=== PATIENT | male | born 1930 | race Two or more races ===

== ENCOUNTER → 2017-03-11 | Outpatient (CLI) | payer MEDICARE ==
[~2017-03-11] MED LIST: ASP81 PO; ATOR10TA24 PO; ATOR20TA22 PO; CLO75 PO; CLOP75TA43 PO; DOCU-416 PO; FERR-41 PO; GAB300 PO; HYDR-385 PO; LEVO50TA86 PO; LIS10 PO; LISI-357 PO; LOR5/325 PO; METO-259 PO; NIT4 SL; NITR-105 PO; NITR0.4T3 SL; OMEP40CA45 PO; OXYC-865 PO; PAN20 PO; PANT40TA65 PO; RANI15SY19 PO; RANI75TA5 PO; SIMV-44 PO; SIMV-54 PO; SUCR1TAB51 PO; SUCR1TAB85 PO; TAMS0.4C70 PO; TERA5CAP57 PO; TOBROD OP; [UNRECOGNIZED DRUG - CODE] PO; prostate med
[2017-03-11 10:03] LABS: INR 3.41
== END ==
LOC: LAB 09:27
PROVIDERS: ATTEND Registered Nurse
DX: Z51.81 Encounter for therapeutic drug level monitoring (principal); Z79.01 Long term (current) use of anticoagulants; I48.0 Paroxysmal atrial fibrillation
CPT/HCPCS: 36415; 85610

== ENCOUNTER 2017-05-03 20:13 | Inpatient (IN) | payer MEDICARE ==
[2017-05-03] MEDS ORDERED: WARF-1 PO (20:29)
--- NOTE | 2017-05-03 20:30 | ER Report ---
History and Physical Time Seen By MD: 20:29 Hx. of Stated Complaint: pt reports shortness of breath past few weeks, heartburn earlier today, fatigue HPI/ROS 87-year-old male with past history significant for coronary artery disease, atrial fibrillation on chronic warfarin therapy presents with approximately one- week history of worsening dyspnea on exertion. Has had some intermittent chest discomfort that he attributes to heartburn but not is certainly associated with his exertional dyspnea. Patient notes that he can normally walk about 30 feet or so without any problems but today he can't even make it to the bathroom without feeling like he has to sit down and rest. He denies any fevers, chills, nausea, vomiting, sore throat, congestion, cough, abdominal pain, increased thirst, urinary frequency, urinary burning, diarrhea or constipation. Patient has noted no dark or bloody stools and denies any blood in his urine. Denies any rashes. Has noticed increased bruising in association with this warfarin use. Is also has had a pulsatile headache with some right-sided neck and jaw pain on and off its been there for some time. No occipital headache and jaw pain at this time. Review of systems per history of present illness otherwise negative Remainder of the 14 system rev: Yes Allergies: Coded Allergies: No Known Drug Allergies (Verified , 10/06/15) Home Meds Reported Medications Warfarin Sodium (WARFARIN SODIUM) 5 Mg Tablet, 5 MG PO QDAY, TAB 05/03/17 Sucralfate (CARAFATE) 1 Gm/10 Ml Oral.susp, 1 GM PO QID 05/03/17 Levothyroxine Sodium (LEVOTHYROXINE SODIUM) 75 Mcg Tablet, 88 MCG PO QDAY, TAB 05/03/17 Ferrous Sulfate (FERROUS SULFATE) 324 Mg Tablet.dr, 324 MG PO QDAY 05/03/17 Carvedilol (CARVEDILOL) 3.125 Mg Tab, 3.125 MG PO BID, TAB 05/03/17 Ranitidine Hcl 15 Mg/Ml Syr (RANITIDINE HCL 15 MG/ML SYR) 15 Mg/1 Ml Syrup, 150 MG PO BID 05/14/14 Tamsulosin Hcl (TAMSULOSIN HCL) 0.4 Mg Cap.er.24h, 0.4 MG PO QDAY 09/08/12 Clopidogrel Bisulfate (Plavix) 75 Mg Tab, 75 MG PO QDAY, 0 Refills 12/08/10 Discontinued Reported Medications Warfarin Sodium (COUMADIN) 5 Mg Tablet, 5 MG PO QDAY 05/03/17 Sucralfate (CARAFATE) 1 Gm Tablet, 500 GM PO QDAY 05/14/14 Levothyroxine Sodium (LEVOTHYROXINE SODIUM) 50 Mcg Tablet, 50 MCG PO QDAY 05/14/14 Aspirin (Childrens Chewable Aspirin) 81 Mg Chew, 81 MG PO QDAY 12/08/10 Discontinued Scripts Hydrocodone Bit/Acetaminophen (HYDROCODON-ACETAMINOPHEN 5-325) 1 Each Tablet, 1 EACH PO Q4-6H, #12 TAB Prov:PATTI CAMARA DO 10/06/15 Past Medical/Surgical History Past medical history significant for cataracts, hard hearing, pacemaker placement, coronary artery disease status post stent placement and triple bypass , history of tobacco abuse, hiatal hernia repair, gastric ulcer, appendectomy, cholecystectomy, GERD, benign prostatic hypertrophy, wrist fracture or, a healed fracture, and spine fracture, rotator cuff repair x2, laminectomy, and and a surgery repair left wrist repair Hx Smoking: Yes Smoking Status: Former Smoker Hx Substance Use Disorder: No Hx Alcohol Use: Yes Constitutional Vital Sign - Last 24 Hours 05/03/17 05/03/17 05/03/17 05/03/17 20:21 20:23 20:28 20:30 Temp 97.8 Pulse 69 66 Resp 18 21 B/P (MAP) 190/102 (131) 190/102 172/86 (114) Pulse Ox 93 96 O2 Delivery Room Air 05/03/17 05/03/17 05/03/17 05/03/17 20:36 20:43 20:58 21:00 Pulse 63 75 Resp 34 35 B/P (MAP) 187/92 (123) 163/77 (105) Pulse Ox 91 97 05/03/17 21:13 Pulse 65 Resp 16 Pulse Ox 93 Physical Exam Physical exam: Vital signs noted. General: Patient alert [and in no acute distress]. [Does not appear ill]. Skin: [Warm, dry, without rashes, or lesions]. Head: [Normocephalic, atraumatic]. Eye: [Normal conjunctiva]. ENMT: [Oral mucosa moist, no pharyngeal erythema or exudate]. Neck: [Supple, trachea midline]. Cardiovascular: [Regular rate and rhythm without gallops murmurs or rubs. Normal peripheral perfusion with no edema noted]. Respiratory: [Lungs clear to auscultation bilaterally with nonlabored respirations. Breath sounds are equal with symmetric expansion]. Gastrointestinal: [Abdomen soft, nontender. Normal bowel sounds with no organomegaly. No guarding or rebound]. Musculoskeletal: [Normal range of motion throughout with normal strength. No tenderness, swelling or deformities noted. Moves all extremities equally]. Neurologic: [Patient alert and oriented 4 with no focal neuro deficits cranial nerves II - XII grossly intact. Patient has normal speech] Psychiatric: [Patient is cooperative with appropriate mood and affect] Medical Decision Making Data Points Result Diagram: 05/03/17203805/03/172038 Laboratory Hematology Test 05/03/17 00:00 05/03/17 20:39 Iron Level 50 ug/dl (49-181) Total Iron Binding Capacity 377 ug/dl (261-497) Percent Iron Saturation 13.3 % Red Blood Count 3.51 M/uL (4.00-5.60) Mean Corpuscular Volume 72.3 fL (80.0-96.0) Mean Corpuscular Hemoglobin 22.2 pg (26.0-33.0) Mean Corpuscular Hemoglobin Concent 30.7 g/dL (32.0-36.0) Red Cell Distribution Width 18.9 % (11.5-14.5) Mean Platelet Volume 7.4 fL (7.2-11.1) Neutrophils (%) (Auto) 77.3 % (39.4-72.5) Lymphocytes (%) (Auto) 16.6 % (17.6-49.6) Monocytes (%) (Auto) 5.3 % (4.1-12.4) Eosinophils (%) (Auto) 0.5 % (0.4-6.7) Basophils (%) (Auto) 0.3 % (0.3-1.4) Nucleated RBC Relative Count (auto) 0.0 /100WBC Neutrophils # (Auto) 4.8 K/uL (2.0-7.4) Lymphocytes # (Auto) 1.0 K/uL (1.3-3.6) Monocytes # (Auto) 0.3 K/uL (0.3-1.0) Eosinophils # (Auto) 0.0 K/uL (0.0-0.5) Basophils # (Auto) 0.0 K/uL (0.0-0.1) Nucleated RBC Absolute Count (auto) 0.00 K/uL Prothrombin Time 30.7 seconds (12.0-14.4) Prothromb Time International Ratio 2.83 Activated Partial Thromboplast Time 47 seconds (23-35) Sodium Level 141 mmol/L (137-145) Potassium Level 2.8 mmol/L (3.5-5.0) Chloride Level 104 mmol/L (98-107) Carbon Dioxide Level 24 mmol/L (22-30) Blood Urea Nitrogen 13 mg/dl (9-21) Creatinine 1.00 mg/dl (0.66-1.25) Glomerular Filtration Rate Calc > 60.0 Random Glucose 152 mg/dl (75-110) Calcium Level 8.3 mg/dl (8.4-10.2) Total Bilirubin 0.6 mg/dl (0.2-1.3) Aspartate Amino Transf (AST/SGOT) 15 U/L (0-35) Alanine Aminotransferase (ALT/SGPT) 26 U/L (0-56) Alkaline Phosphatase 133 U/L (0-126) Troponin I 0.013 ng/ml Total Protein 6.8 gm/dl (6.3-8.2) Albumin 3.4 g/dl (3.5-5.0) Chemistry Test 05/03/17 00:00 05/03/17 20:39 Iron Level 50 ug/dl (49-181) Total Iron Binding Capacity 377 ug/dl (261-497) Percent Iron Saturation 13.3 % White Blood Count 6.2 k/uL (4.5-11.0) Red Blood Count 3.51 M/uL (4.00-5.60) Hemoglobin 7.8 g/dL (14.0-18.0) Hematocrit 25.4 % (42.0-52.0) Mean Corpuscular Volume 72.3 fL (80.0-96.0) Mean Corpuscular Hemoglobin 22.2 pg (26.0-33.0) Mean Corpuscular Hemoglobin Concent 30.7 g/dL (32.0-36.0) Red Cell Distribution Width 18.9 % (11.5-14.5) Platelet Count 216 K/uL (150-450) Mean Platelet Volume 7.4 fL (7.2-11.1) Neutrophils (%) (Auto) 77.3 % (39.4-72.5) Lymphocytes (%) (Auto) 16.6 % (17.6-49.6) Monocytes (%) (Auto) 5.3 % (4.1-12.4) Eosinophils (%) (Auto) 0.5 % (0.4-6.7) Basophils (%) (Auto) 0.3 % (0.3-1.4) Nucleated RBC Relative Count (auto) 0.0 /100WBC Neutrophils # (Auto) 4.8 K/uL (2.0-7.4) Lymphocytes # (Auto) 1.0 K/uL (1.3-3.6) Monocytes # (Auto) 0.3 K/uL (0.3-1.0) Eosinophils # (Auto) 0.0 K/uL (0.0-0.5) Basophils # (Auto) 0.0 K/uL (0.0-0.1) Nucleated RBC Absolute Count (auto) 0.00 K/uL Prothrombin Time 30.7 seconds (12.0-14.4) Prothromb Time International Ratio 2.83 Activated Partial Thromboplast Time 47 seconds (23-35) Glomerular Filtration Rate Calc > 60.0 Calcium Level 8.3 mg/dl (8.4-10.2) Total Bilirubin 0.6 mg/dl (0.2-1.3) Aspartate Amino Transf (AST/SGOT) 15 U/L (0-35) Alanine Aminotransferase (ALT/SGPT) 26 U/L (0-56) Alkaline Phosphatase 133 U/L (0-126) Troponin I 0.013 ng/ml Total Protein 6.8 gm/dl (6.3-8.2) Albumin 3.4 g/dl (3.5-5.0) Coagulation Test 05/03/17 20:39 Prothrombin Time 30.7 seconds Prothromb Time International Ratio 2.83 Activated Partial Thromboplast Time 47 seconds ED Course/Re-evaluation ED Course 87-year-old male presents with significant exertional dyspnea and weakness. EKG troponin without any acute changes. Patient found to be anemic with a hemoglobin under 8. Otherwise hemodynamically stable without any suggestive acute coronary syndrome. Patient's potassium was 2.8 so given oral potassium replacement. Type and cross obtained patient admitted for blood transfusion and further evaluation. Discussed results plan detail with patient's family and expressed understanding and agreement. Decision to Disposition Date: May 03, 2017 Decision to Disposition Time: 23:00 Depart Departure Latest Vital Signs Vital Signs Date Time Temp Pulse Resp B/P (MAP) Pulse Ox O2 Delivery O2 Flow Rate FiO2 05/03/17 21:13 65 16 93 05/03/17 21:00 163/77 (105) 05/03/17 20:23 97.8 Room Air Impression: Primary Impression: Anemia Additional Impression: Exertional dyspnea Condition: Improved Disposition: Admitted from ER Problem Qualifiers DEBBIE HUI MD May 03, 2017 20:30
[2017-05-03] MEDS ORDERED: CAR3.125 PO (20:35)
[2017-05-03 20:52] LABS: PLATELET COUNT, AUTOMATED 216 K/uL (150-450)
[2017-05-03 21:03] LABS: INR 2.83
[2017-05-03] MEDS ORDERED: POTASSIUM CHL 20 MEQ TABCR PO ONE (21:20)
--- NOTE | 2017-05-03 21:31 | RADIOLOGY IMAGING REPORT ---
FACILITY: [facility] PATIENT NAME: Tiburcio Rivas : 1930 MR: [id number] V: [id number] EXAM DATE: ORDERING PHYSICIAN: DEBBIE HUI TECHNOLOGIST: Location: [facility] - [place] Patient: Tiburcio Rivas : 1930 Visit/Account:[id number] Date of Sevice: 05/03/2017 CHEST: Indication: Weakness and dizziness. Technique: Frontal and lateral views were obtained. Comparison: 09/15/2016 Skeletal and soft tissue structures: The sternal sutures appear unchanged. Surgical anchors are prese nt in the right shoulder. No acute skeletal deformity is identified. Heart and mediastinum: The heart size is normal. The cardiac pacemaker and leads appear unchanged. Lung osborn: Well-expanded and clear. No focal or diffuse opacities. No evidence of vascular congesti on. Pleural spaces: Unremarkable. Impression: No acute process or significant change. Report Dictated By: Jovi Rubi MD at 05/03/2017 9:26 PM Report E-Signed By: Jovi Rubi MD at 05/03/2017 9:28 PM WSN:[id number]
[2017-05-03] MEDS ORDERED: MAG HYD/AL HYD/SIMETH 30ML UDC PO ONE (21:50)
[2017-05-03] MEDS ORDERED: LIDOCAINE 2% VISC SLN 15ML UDC PO ONE (21:50)
--- NOTE | 2017-05-03 22:01 | EKG ---
FACILITY: [facility] PATIENT NAME: VIBHA WALTON : [id number] MR: [id number] V: [id number] EXAM DATE: ORDERING PHYSICIAN: DEBBIE HUI TECHNOLOGIST: MISAEL Test Reason : SOB Blood Pressure : / mmHG Vent. Rate : 069 BPM Atrial Rate : 069 BPM P-R Int : 152 ms QRS Dur : 170 ms QT Int : 500 ms P-R-T Axes : 075 -79 022 degrees QTc Int : 535 ms Electronic ventricular pacemaker When compared with ECG of 15-SEP-2016 13:50, Vent. rate has increased BY 7 BPM Confirmed by AMILCAR NICHOLSON ([id number]) on 05/04/2017 4:13:34 AM Referred By: Confirmed By:AMILCAR NICHOLSON
[2017-05-03 22:10] VITALS: BP 171/88
[2017-05-03] MEDS ORDERED: INFLUENZA VIRUS VAC 0.5 ML SYR IM ONLY ONE (22:40)
[2017-05-03] MEDS ORDERED: LEVO75TA73 PO (22:49)
[2017-05-03] MEDS ORDERED: FERR324T16 PO (22:49)
[2017-05-03] MEDS ORDERED: WARF5TAB23 PO (22:49)
[2017-05-03] MEDS ORDERED: SUCR1ORA17 PO (22:49)
--- NOTE | 2017-05-03 22:57 | History & Physical ---
History of Present Illness Chief Complaint Weakness History of Present Illness This patient presented to the emergency room complaining of weakness and fatigue. His symptoms started approximately 3 weeks ago, but reached a climax today when he became fatigued walking to the bathroom. He denies any blood loss or melena. History Problems: (1) Hypothyroid (2) CAD (coronary artery disease) (3) Hx of CABG (4) History of coronary artery stent placement (5) Atrial fibrillation (6) GERD (gastroesophageal reflux disease) (7) BPH (benign prostatic hyperplasia) (8) History of cholecystectomy Home Meds Reported Medications Carvedilol (CARVEDILOL) 3.125 Mg Tab, 3.125 MG PO BID, TAB 05/03/17 Warfarin Sodium (COUMADIN) 5 Mg Tablet, 5 MG PO QDAY 05/03/17 Sucralfate (CARAFATE) 1 Gm Tablet, 500 GM PO QDAY 05/14/14 Ranitidine Hcl 15 Mg/Ml Syr (RANITIDINE HCL 15 MG/ML SYR) 15 Mg/1 Ml Syrup, 75 MG PO QDAY 05/14/14 Tamsulosin Hcl (TAMSULOSIN HCL) 0.4 Mg Cap.er.24h, 0.4 MG PO QDAY 09/08/12 Clopidogrel Bisulfate (Plavix) 75 Mg Tab, 75 MG PO QDAY, 0 Refills 12/08/10 Discontinued Reported Medications Levothyroxine Sodium (LEVOTHYROXINE SODIUM) 50 Mcg Tablet, 50 MCG PO QDAY 05/14/14 Aspirin (Childrens Chewable Aspirin) 81 Mg Chew, 81 MG PO QDAY 12/08/10 Discontinued Scripts Hydrocodone Bit/Acetaminophen (HYDROCODON-ACETAMINOPHEN 5-325) 1 Each Tablet, 1 EACH PO Q4-6H, #12 TAB Prov:HOAPATTI DO 10/06/15 Allergies: Coded Allergies: No Known Drug Allergies (Verified , 10/06/15) Hx Smoking: Yes Smoking Status: Former Smoker Caffeine Intake: Coffee Caffeine/Cups Per Day: 8 cups per day Hx Alcohol Use: Yes (QUIT 1982) Hx Substance Use Disorder: No Review of Systems All Systems Reviewed/Normal: Yes, Except as Noted Neurological: Weakness Exam Vital Signs Vital Signs Date Time Temp Pulse Resp B/P (MAP) Pulse Ox O2 Delivery O2 Flow Rate FiO2 05/03/17 22:10 98.2 66 24 171/88 (115) 96 Room Air Neuro: No Gross deficits Eyes: PERRLA Cardiovascular: Regular Rate and Rhythm Respiratory: Clear to Auscultation GI: Abd Soft and Non-Tender Extremities: No Edema Integumentary: Pallor, No Cyanosis Medical Decision Making Data Points Result Diagram: 05/03/17203805/03/172038 EKG / Imaging Imaging Chest x-ray reviewed. Assessment and Plan Problems: (1) Anemia Status: Acute Assessment & Plan: He did present with increased weakness and fatigue. His Hgb was found to be low, but there is no obvious source of blood loss. He does have a history of iron deficiency. We will plan to transfuse 2 units of red cells and repeat a Hgb in the morning. We have also ordered Hemoccult testing and an iron panel. His last colonoscopy and EGD were approximately 3yrs ago, and he reports that they were normal. (2) CAD (coronary artery disease) Assessment & Plan: He does have a history of CABG and stent placement. He is on chronic treatment with Plavix and carvedilol. The Plavix has been held until we can determine if there is occult blood loss. (3) Atrial fibrillation Assessment & Plan: He is on chronic treatment with warfarin. This has been held until we can evaluate for occult blood loss, but we have not reversed his anticoagulation. We have ordered daily INR monitoring. (4) GERD (gastroesophageal reflux disease) Assessment & Plan: He is on chronic treatment with Zantac and sucralfate. (5) Hypothyroid Assessment & Plan: He is on chronic treatment with Synthroid. (6) BPH (benign prostatic hyperplasia) Assessment & Plan: He is on chronic treatment with tamsulosin. Venous Thromboembolism Antithrombotics Is Pt On Any Antithrombotics?: Yes Exam Sepsis Risk: No Definite Risk AMILCAR NICHOLSON DO May 03, 2017 22:57
[2017-05-04] VITALS (8 sets, daily range): BP systolic 149–179; BP diastolic 70–90
[2017-05-04] MEDS ORDERED: NS(*) 0.9% 500 ML BAG 500 ML ONE (00:01)
[2017-05-04] MEDS ORDERED: LEVOTHYROXINE SOD 0.088 MG TAB PO SCH (06:00)
[2017-05-04 07:05] LABS: PLATELET COUNT, AUTOMATED 201 K/uL (150-450)
[2017-05-04 07:35] LABS: INR 2.66
[2017-05-04] MEDS ORDERED: TAMSULOSIN HCL 0.4 MG CAP PO SCH (09:00)
[2017-05-04] MEDS ORDERED: RANITIDINE 150 MG/10 ML UDC PO SCH (09:00)
[2017-05-04] MEDS ORDERED: CARVEDILOL 3.125 MG TAB PO SCH (09:00)
[2017-05-04] MEDS ORDERED: SUCRALFATE 1 GM TAB PO SCH (09:00)
[2017-05-04] MEDS ORDERED: FERR325T24 PO (09:52)
--- NOTE | 2017-05-04 10:01 | Hospitalist Depart ---
Discharge Summary Reason for Hosp/Final Diag: (1) Anemia Status: Acute Hospital Course & Plan: He did present with increased weakness and fatigue. His Hgb was found to be low, but there is no obvious source of blood loss. He does have a history of iron deficiency. He had 2 units of packed red cells transfused and repeat Hgb this morning is 10.4. Patient will increase his Iron to twice daily and he will follow up with the [facility]. He will recheck a CBC in one week, with results sent to [facility]. (2) CAD (coronary artery disease) Hospital Course & Plan: He does have a history of CABG and stent placement. He is on chronic treatment with Plavix and carvedilol. (3) Atrial fibrillation Hospital Course & Plan: He is on chronic treatment with warfarin. (4) GERD (gastroesophageal reflux disease) Hospital Course & Plan: He is on chronic treatment with Zantac and sucralfate. (5) Hypothyroid Hospital Course & Plan: He is on chronic treatment with Synthroid. (6) BPH (benign prostatic hyperplasia) Hospital Course & Plan: He is on chronic treatment with tamsulosin. Departure Weight (Pounds): 155 Weight (Ounces): 6.0 Result Diagram: 05/04/1765705/04/17657 Condition: Improved Discharge: Home, Self Care Discharge Instructions Home Meds Active Scripts Ferrous Sulfate (IRON) 325 Mg Tablet, 325 MG PO BID, #60 TAB Prov:JUSTIN CARRASCO Stefanie [facility] 05/04/17 Reported Medications Warfarin Sodium (WARFARIN SODIUM) 5 Mg Tablet, 5 MG PO QDAY, TAB 05/03/17 Sucralfate (CARAFATE) 1 Gm/10 Ml Oral.susp, 1 GM PO QID 05/03/17 Levothyroxine Sodium (LEVOTHYROXINE SODIUM) 75 Mcg Tablet, 88 MCG PO QDAY, TAB 05/03/17 Carvedilol (CARVEDILOL) 3.125 Mg Tab, 3.125 MG PO BID, TAB 05/03/17 Ranitidine Hcl 15 Mg/Ml Syr (RANITIDINE HCL 15 MG/ML SYR) 15 Mg/1 Ml Syrup, 150 MG PO BID 05/14/14 Tamsulosin Hcl (TAMSULOSIN HCL) 0.4 Mg Cap.er.24h, 0.4 MG PO QDAY 09/08/12 Clopidogrel Bisulfate (Plavix) 75 Mg Tab, 75 MG PO QDAY, 0 Refills 12/08/10 Discontinued Reported Medications Ferrous Sulfate (FERROUS SULFATE) 324 Mg Tablet.dr, 324 MG PO QDAY 05/03/17 Warfarin Sodium (COUMADIN) 5 Mg Tablet, 5 MG PO QDAY 05/03/17 Sucralfate (CARAFATE) 1 Gm Tablet, 500 GM PO QDAY 05/14/14 Levothyroxine Sodium (LEVOTHYROXINE SODIUM) 50 Mcg Tablet, 50 MCG PO QDAY 05/14/14 Aspirin (Childrens Chewable Aspirin) 81 Mg Chew, 81 MG PO QDAY 12/08/10 Discontinued Scripts Hydrocodone Bit/Acetaminophen (HYDROCODON-ACETAMINOPHEN 5-325) 1 Each Tablet, 1 EACH PO Q4-6H, #12 TAB Prov:PATTI CAMARA 10/06/15 Diet: Regular Activity: As Tolerated Copies to: AMAURY PASTOR MD Venous Thromboembolism Antithrombotics Is Pt On Any Antithrombotics?: Yes JUSTIN CARRASCO May 04, 2017 10:01
== END 2017-05-04 10:55 | disposition home or self-care (01) | DRG 812 ==
LOC: ER 20:37 → MED 21:38
PROVIDERS: ADMIT Family Medicine; ATTEND Family Medicine
PROC: 30233N1 Transfusion of Nonautologous Red Blood Cells into Peripheral Vein, Percutaneous Approach (ICD-10-PCS; principal; 2017-05-03)
DX: D50.9 Iron deficiency anemia, unspecified (principal); K91.2 Postsurgical malabsorption, not elsewhere classified; I25.10 Atherosclerotic heart disease of native coronary artery without angina pectoris; I48.2 Chronic atrial fibrillation; K21.9 Gastro-esophageal reflux disease without esophagitis; E03.9 Hypothyroidism, unspecified; N40.0 Benign prostatic hyperplasia without lower urinary tract symptoms; Z95.1 Presence of aortocoronary bypass graft; Z79.01 Long term (current) use of anticoagulants; Z95.0 Presence of cardiac pacemaker; Z87.891 Personal history of nicotine dependence; Z90.49 Acquired absence of other specified parts of digestive tract; I25.2 Old myocardial infarction
CPT/HCPCS: 36415; 71046; 82040; 82247; 82310; 82374; 82435; 82565; 82947; 83540; 83550; 84075; 84132; 84155; 84295; 84450; 84460; 84484; 84520; 85025; 85610; 85730; 86850; 86900; 86901; 86920; 93005; 99284; A9270; P9016

== ENCOUNTER → 2017-05-13 | Outpatient (CLI) | payer MEDICARE ==
[~2017-05-13] MED LIST changes: +CAR3.125 PO; +FERR324T16 PO; +FERR325T24 PO; +LEVO75TA73 PO; +SUCR1ORA17 PO; +WARF-1 PO; +WARF5TAB23 PO
[2017-05-13 15:20] LABS: PLATELET COUNT, AUTOMATED 298 K/uL (150-450)
== END ==
LOC: LAB 14:50
PROVIDERS: ATTEND Nurse Practitioner Family
DX: D50.9 Iron deficiency anemia, unspecified (principal)
CPT/HCPCS: 36415; 85025

== ENCOUNTER → 2017-05-13 | Outpatient (CLI) | payer MEDICARE ==
[2017-05-13 15:33] LABS: INR 2.21
== END ==
LOC: LAB 14:53
PROVIDERS: ATTEND Registered Nurse
DX: Z51.81 Encounter for therapeutic drug level monitoring (principal); Z79.01 Long term (current) use of anticoagulants; I48.0 Paroxysmal atrial fibrillation
CPT/HCPCS: 36415; 85610

== ENCOUNTER 2017-08-07 09:59 | Emergency (ER) | payer MEDICARE ==
--- NOTE | 2017-08-07 10:08 | ER Report ---
History and Physical Time Seen By MD: 10:08 Hx. of Stated Complaint: SYNCOPE AND CHEST PAIN. RELIEVED BY ONE TABLET OF NITRO HYDROSTATIC TESTER. HPI/ROS No syncope or chest pain. Reports left arm pain around humerus/elbow. Family was confused and thought chest pain. No no pain. Remainder of the 14 system rev: Yes Allergies: Coded Allergies: aspirin (Verified Allergy, Unknown, 08/07/17) "I'M NOT SUPPOSED TO TAKE ANY" Home Meds Active Scripts Levothyroxine Sodium (LEVOTHYROXINE SODIUM) 88 Mcg Tablet, 1 TAB PO QDAY for 30 Days, #30 TAB 3 Refills Prov:DERIC COURTNEY MD 08/31/17 Ferrous Sulfate (IRON) 325 Mg Tablet, 325 MG PO BID, #60 TAB Prov:JUSTIN CARRASCO 05/04/17 Reported Medications Warfarin Sodium (COUMADIN) Unknown Strength Tablet, PO QDAY 08/31/17 Oxygen (OXYGEN) Inha, 2 L INH HS, L 08/31/17 Carvedilol (CARVEDILOL) 3.125 Mg Tab, 1 TAB PO BID 05/03/17 Ranitidine Hcl 15 Mg/Ml Syr (RANITIDINE HCL 15 MG/ML SYR) 15 Mg/1 Ml Syrup, 15 MG PO BID Y for acid reflux 05/14/14 Tamsulosin Hcl (TAMSULOSIN HCL) 0.4 Mg Cap.er.24h, 1 CAP PO QDAY 09/08/12 Clopidogrel Bisulfate (Plavix) 75 Mg Tab, 1 TAB PO QDAY 12/08/10 Reviewed Nurses Notes: Yes Old Medical Records Reviewed: Yes Hx Smoking: Yes Smoking Status: Former Smoker Hx Substance Use Disorder: No Hx Alcohol Use: Yes (QUIT 1982) Constitutional Physical Exam General Appearance: The patient is alert, has no immediate need for airway protection and no signs of toxicity. Eyes: Pupils equal and round no pallor or injection. ENT, Mouth: Mucous membranes are moist. Respiratory: There are no retractions, lungs are clear to auscultation. Cardiovascular: Regular rate and rhythm. Gastrointestinal: Abdomen is soft and non tender, no masses, bowel sounds normal. Neurological: sensation/strength in tact Skin: Warm and dry, no rashes. Musculoskeletal: Neck is supple non tender. Extremities are nontender, nonswollen and have full range of motion. DIFFERENTIAL DIAGNOSIS: After history and physical exam differential diagnosis was considered for ACS, dissection, fracture, infection Medical Decision Making Data Points Laboratory Hematology Test 08/07/17 09:52 08/07/17 12:42 Red Blood Count 3.78 M/uL (4.00-5.60) Mean Corpuscular Volume 87.4 fL (80.0-96.0) Mean Corpuscular Hemoglobin 28.3 pg (26.0-33.0) Mean Corpuscular Hemoglobin Concent 32.4 g/dL (32.0-36.0) Red Cell Distribution Width 17.6 % (11.5-14.5) Mean Platelet Volume 8.0 fL (7.2-11.1) Neutrophils (%) (Auto) 56.3 % (39.4-72.5) Lymphocytes (%) (Auto) 33.3 % (17.6-49.6) Monocytes (%) (Auto) 7.6 % (4.1-12.4) Eosinophils (%) (Auto) 2.4 % (0.4-6.7) Basophils (%) (Auto) 0.4 % (0.3-1.4) Nucleated RBC Relative Count (auto) 0.1 /100WBC Neutrophils # (Auto) 2.7 K/uL (2.0-7.4) Lymphocytes # (Auto) 1.6 K/uL (1.3-3.6) Monocytes # (Auto) 0.4 K/uL (0.3-1.0) Eosinophils # (Auto) 0.1 K/uL (0.0-0.5) Basophils # (Auto) 0.0 K/uL (0.0-0.1) Nucleated RBC Absolute Count (auto) 0.00 K/uL Peripheral Blood Smear No Y/N Prothrombin Time 20.5 seconds (12.0-14.4) Prothromb Time International Ratio 1.71 Sodium Level 141 mmol/L (137-145) Potassium Level 3.7 mmol/L (3.5-5.0) Chloride Level 107 mmol/L (98-107) Carbon Dioxide Level 22 mmol/L (22-30) Blood Urea Nitrogen 20 mg/dl (9-21) Creatinine 1.30 mg/dl (0.66-1.25) Glomerular Filtration Rate Calc 52.1 Random Glucose 114 mg/dl (75-110) Calcium Level 8.8 mg/dl (8.4-10.2) Total Bilirubin 0.5 mg/dl (0.2-1.3) Aspartate Amino Transf (AST/SGOT) 20 U/L (0-35) Alanine Aminotransferase (ALT/SGPT) 19 U/L (0-56) Alkaline Phosphatase 118 U/L (0-126) Total Protein 6.8 gm/dl (6.3-8.2) Albumin 3.7 g/dl (3.5-5.0) Troponin I < 0.012 ng/ml Chemistry Test 08/07/17 09:52 08/07/17 12:42 White Blood Count 4.8 k/uL (4.5-11.0) Red Blood Count 3.78 M/uL (4.00-5.60) Hemoglobin 10.7 g/dL (14.0-18.0) Hematocrit 33.0 % (42.0-52.0) Mean Corpuscular Volume 87.4 fL (80.0-96.0) Mean Corpuscular Hemoglobin 28.3 pg (26.0-33.0) Mean Corpuscular Hemoglobin Concent 32.4 g/dL (32.0-36.0) Red Cell Distribution Width 17.6 % (11.5-14.5) Platelet Count 224 K/uL (150-450) Mean Platelet Volume 8.0 fL (7.2-11.1) Neutrophils (%) (Auto) 56.3 % (39.4-72.5) Lymphocytes (%) (Auto) 33.3 % (17.6-49.6) Monocytes (%) (Auto) 7.6 % (4.1-12.4) Eosinophils (%) (Auto) 2.4 % (0.4-6.7) Basophils (%) (Auto) 0.4 % (0.3-1.4) Nucleated RBC Relative Count (auto) 0.1 /100WBC Neutrophils # (Auto) 2.7 K/uL (2.0-7.4) Lymphocytes # (Auto) 1.6 K/uL (1.3-3.6) Monocytes # (Auto) 0.4 K/uL (0.3-1.0) Eosinophils # (Auto) 0.1 K/uL (0.0-0.5) Basophils # (Auto) 0.0 K/uL (0.0-0.1) Nucleated RBC Absolute Count (auto) 0.00 K/uL Peripheral Blood Smear No Y/N Prothrombin Time 20.5 seconds (12.0-14.4) Prothromb Time International Ratio 1.71 Glomerular Filtration Rate Calc 52.1 Calcium Level 8.8 mg/dl (8.4-10.2) Total Bilirubin 0.5 mg/dl (0.2-1.3) Aspartate Amino Transf (AST/SGOT) 20 U/L (0-35) Alanine Aminotransferase (ALT/SGPT) 19 U/L (0-56) Alkaline Phosphatase 118 U/L (0-126) Total Protein 6.8 gm/dl (6.3-8.2) Albumin 3.7 g/dl (3.5-5.0) Troponin I < 0.012 ng/ml Coagulation Test 08/07/17 09:52 Prothrombin Time 20.5 seconds Prothromb Time International Ratio 1.71 ED Course/Re-evaluation ED Course symptoms ongoing for 24 hours. not chest pain or syncope. pt. with pain in left arm. no ekg changes and one normal trop after 24 hours of non chest pain. no pain currently. will d/c with pcm follow up Decision to Disposition Date: Aug 07, 2017 Decision to Disposition Time: 13:44 Depart Departure Latest Vital Signs Impression: Primary Impression: Left arm pain Condition: Improved Disposition: HOME OR SELF-CARE Patient Instructions: Arm Pain (ED) DANNY HARRIS MD Aug 07, 2017 10:08
[2017-08-07 10:28] LABS: PLATELET COUNT, AUTOMATED 224 K/uL (150-450)
--- NOTE | 2017-08-07 11:18 | RADIOLOGY IMAGING REPORT ---
[facility] PATIENT NAME: Tiburcio Rivas : 1930 MR: [id number] V: [id number] EXAM DATE: ORDERING PHYSICIAN: DANNY HARRIS TECHNOLOGIST: [place] [facility] [place] Patient: Tiburcio Rivas : 1930 Visit/Account:[id number] Date of Sevice: 08/07/2017 CHEST PA AND LAT COMPARISONS: 2 view chest dated May 03, 2017 ADDITIONAL PERTINENT HISTORY: Chest pain FINDINGS: Cardiomediastinal silhouette: Triple lead left-sided cardiac pacemaker. Pulmonary vasculature: Negative. Lung osborn: Minimal background interstitial scarring with hyperexpanded lung osborn. No segmental c onsolidative process. Pleural spaces: Negative. Osseous structures: Suture anchors involving the right humeral head. Surrounding soft tissues: Negative. IMPRESSION: No evidence of acute cardiopulmonary disease. Report Dictated By: Jason Garsia MD at 08/07/2017 11:12 AM Report E-Signed By: Jason Garsia MD at 08/07/2017 11:14 AM WSN:[id number]
--- NOTE | 2017-08-07 11:40 | EKG ---
[place] [facility] [place] NAME: VIBHA WALTON : [id number] MR: [id number] V: [id number] EXAM DATE: ORDERING PHYSICIAN: DANNY HARRIS TECHNOLOGIST: TABATHA Bloom Reason : CHEST PAIN Blood Pressure : / mmHG Vent. Rate : 060 BPM Atrial Rate : 227 BPM P-R Int : 000 ms QRS Dur : 174 ms QT Int : 490 ms P-R-T Axes : 000 267 034 degrees QTc Int : 490 ms AV sequential or dual chamber electronic pacemaker When compared with ECG of 03-MAY-2017 20:28, Vent. rate has decreased BY 9 BPM Confirmed by TIM GALINDO ([id number]) on 08/07/2017 8:58:58 PM Referred By: KIMBERLY Confirmed By:TIM GALINDO
[2017-08-07 13:30] VITALS: BP 147/103
[2017-08-07 14:28] LABS: INR 1.71
[2017-08-31] MEDS ORDERED: LEVO88TA45 PO ×2 (13:51→15:05)
[2017-08-31] MEDS ORDERED: OXYGENHOME INH (13:53)
[2017-08-31] MEDS ORDERED: WARF1TAB56 PO (13:55)
== END 2017-08-07 14:03 | disposition home or self-care (01) ==
LOC: ER 10:08
DX: M79.602 Pain in left arm (principal)
CPT/HCPCS: 36415; 71046; 82040; 82247; 82310; 82374; 82435; 82565; 82947; 84075; 84132; 84155; 84295; 84450; 84460; 84484; 84520; 85025; 85610; 93005; 99284

== ENCOUNTER → 2017-08-07 | Outpatient (CLI) | payer MEDICARE | LOC: AMB 09:41 | PROVIDERS: ATTEND Nurse Practitioner | DX: R07.9 Chest pain, unspecified (principal) | CPT/HCPCS: A0425; A0427 ==

== ENCOUNTER → 2017-08-31 | Outpatient (CLI) | payer MEDICARE ==
[~2017-08-31] MED LIST changes: +LEVO88TA45 PO; +OXYGENHOME INH; +WARF1TAB56 PO
== END ==
LOC: LAB 15:11
PROVIDERS: ATTEND Family Medicine
DX: N18.9 Chronic kidney disease, unspecified (principal); E03.9 Hypothyroidism, unspecified
CPT/HCPCS: 36415; 82310; 82374; 82435; 82565; 82947; 84132; 84295; 84443; 84520

== ENCOUNTER 2017-11-25 21:55 | Emergency (ER) | payer MEDICARE ==
--- NOTE | 2017-11-25 21:58 | ER Report ---
History and Physical Time Seen By MD: 21:57 HPI/ROS CHIEF COMPLAINT: Chest pain, diaphoresis HISTORY OF PRESENT ILLNESS: 87-year-old male with an extensive past medical history who underwent a recent pacemaker replacement due to a low battery on his old pacemaker of 5 years. Patient has extensive bruising in his anterior chest since he was on Coumadin prior to the procedure. Patient has had Coumadin discontinued one week ago and is now starting Alquist. He took his 1st dose tonight. Patient has a history of coronary artery disease, status post 8 stents. He was placed on Plavix for life by his kiln firer helper. Patient notes bilateral shoulder pain radiating to his back. He took a sublingual nitroglycerin with some improvement and then a short period later he took a 2nd nitroglycerin. He also had a headache which resolved with the nitroglycerin. Patient was briefly diaphoretic. He denies shortness of breath or leg swelling. REVIEW OF SYSTEMS: Respiratory: No cough, no dyspnea. Cardiovascular: As above Gastrointestinal: No vomiting, no abdominal pain. Musculoskeletal: No back pain. Allergies: Coded Allergies: aspirin (Verified Allergy, Unknown, 08/07/17) "I'M NOT SUPPOSED TO TAKE ANY" Home Meds Active Scripts Levothyroxine Sodium (LEVOTHYROXINE SODIUM) 88 Mcg Tablet, 1 TAB PO QDAY for 30 Days, #30 TAB 3 Refills Prov:DERIC COURTNEY MD 08/31/17 Ferrous Sulfate (IRON) 325 Mg Tablet, 325 MG PO BID, #60 TAB Prov:JUSTIN CARRASCO BAKER OPERATOR [employer] 05/04/17 Reported Medications Apixaban (ELIQUIS) 5 Mg Tablet, 5 MG PO BID 11/25/17 Oxygen (OXYGEN) Inha, 2 L INH HS, L 08/31/17 Carvedilol (CARVEDILOL) 3.125 Mg Tab, 1 TAB PO BID 05/03/17 Ranitidine Hcl 15 Mg/Ml Syr (RANITIDINE HCL 15 MG/ML SYR) 15 Mg/1 Ml Syrup, 15 MG PO BID PRN for acid reflux 05/14/14 Tamsulosin Hcl (TAMSULOSIN HCL) 0.4 Mg Cap.er.24h, 1 CAP PO QDAY 09/08/12 Discontinued Reported Medications Warfarin Sodium (COUMADIN) Unknown Strength Tablet, PO QDAY 08/31/17 Clopidogrel Bisulfate (Plavix) 75 Mg Tab, 1 TAB PO QDAY 12/08/10 Past Medical/Surgical History Past Medical History Reviewed: Yes Updated: Past Medical Hx, Surgical Hx HEENT: Reports hx of: cataracts hearing deficit (Bilateral Hearing aids but only wears one at a time.) macular degeneration Cardiovascular: Reports hx of: atrial fibrillation CHF coronary artery disease (8 stents) Gastrointestinal: Reports hx of: GERD peptic ulcer disease Musculoskeletal: Reports hx of: scoliosis Endocrine: Reports hx of: other endocrine history ("THYROID PROBLEMS") Hematology/oncology: Reports hx of: coagulopathy HEENT: Reports hx of: cataract extraction tonsillectomy (T&A) Cardiovascular: Reports hx of: pacemaker (and defib) Gastrointestinal: Reports hx of: appendectomy cholecystectomy hernia repair other GI surgery (partial gastric resection 2/2 ulcers) Reviewed Nurses Notes: Yes Old Medical Records Reviewed: Yes Hx Smoking: Yes Smoking Status: Former Smoker Hx Substance Use Disorder: No Hx Alcohol Use: Yes (QUIT 1982) Constitutional Vital Sign - Last 24 Hours 11/25/17 11/25/17 11/25/17 11/25/17 22:02 22:04 22:25 22:30 Temp 98.2 Pulse 79 79 Resp 16 10 B/P (MAP) 152/95 (114) 152/95 142/81 (101) Pulse Ox 93 90 O2 Delivery Room Air 11/25/17 11/25/17 11/25/17 11/25/17 22:47 22:55 23:00 23:25 Pulse 80 80 Resp 26 15 B/P (MAP) 149/96 (113) 136/83 (100) Pulse Ox 92 91 11/25/17 11/25/17 11/26/17 11/26/17 23:30 23:30 00:00 00:30 Pulse 80 80 75 Resp 16 25 32 B/P (MAP) 139/84 (102) 139/84 (102) 147/90 (109) 148/87 (107) Pulse Ox 90 94 88 11/26/17 11/26/17 11/26/17 11/26/17 01:00 01:05 01:30 01:35 Pulse 82 80 80 Resp 27 21 26 B/P (MAP) 146/92 (110) 151/92 (111) Pulse Ox 91 93 93 11/26/17 11/26/17 11/26/17 11/26/17 02:00 02:05 02:30 02:35 Pulse 80 80 Resp 28 20 B/P (MAP) 163/108 (126) 157/89 (111) Pulse Ox 92 94 Physical Exam General Appearance: The patient is alert, has no immediate need for airway protection and no current signs of toxicity.. Vital signs stable, afebrile, pulse ox normal HEENT: Pupils equal and round no injection. Oropharynx without redness or ex udate, mucous. Membranes are moist Respiratory: Chest is non tender, lungs are clear to auscultation. Huge old appearing ecchymosis in a semicircular arc across the lower aspect of the chest wall and ribs. Well-healed intact incision in the left infraclavicular area Cardiac: Distant irregular rate and rhythm Gastrointestinal: Abdomen is soft and non tender, no masses, bowel sounds normal. Musculoskeletal: Neck: Neck is supple and non tender. Extremities have full range of motion and are non tender. No edema, no calf tenderness Skin: No rashes or lesions. DIFFERENTIAL DIAGNOSIS: After history and physical exam differential diagnosis was considered for chest pain including but not limited to myocardial ischemia, pericarditis pulmonary embolus, chest wall pain, pleural inflammation and pulmonary infectious causes. Medical Decision Making Data Points Result Diagram: 11/25/17220111/25/172201 Laboratory Hematology Test 11/25/17 22:02 11/26/17 01:02 Red Blood Count 3.91 M/uL (4.00-5.60) Mean Corpuscular Volume 84.2 fL (80.0-96.0) Mean Corpuscular Hemoglobin 26.9 pg (26.0-33.0) Mean Corpuscular Hemoglobin Concent 32.0 g/dL (32.0-36.0) Red Cell Distribution Width 15.5 % (11.5-14.5) Mean Platelet Volume 8.0 fL (7.2-11.1) Neutrophils (%) (Auto) 56.9 % (39.4-72.5) Lymphocytes (%) (Auto) 34.1 % (17.6-49.6) Monocytes (%) (Auto) 6.4 % (4.1-12.4) Eosinophils (%) (Auto) 1.9 % (0.4-6.7) Basophils (%) (Auto) 0.7 % (0.3-1.4) Nucleated RBC Relative Count (auto) 0.0 /100WBC Neutrophils # (Auto) 3.5 K/uL (2.0-7.4) Lymphocytes # (Auto) 2.1 K/uL (1.3-3.6) Monocytes # (Auto) 0.4 K/uL (0.3-1.0) Eosinophils # (Auto) 0.1 K/uL (0.0-0.5) Basophils # (Auto) 0.0 K/uL (0.0-0.1) Nucleated RBC Absolute Count (auto) 0.00 K/uL Sodium Level 144 mmol/L (137-145) Potassium Level 3.4 mmol/L (3.5-5.0) Chloride Level 108 mmol/L (98-107) Carbon Dioxide Level 23 mmol/L (22-30) Blood Urea Nitrogen 30 mg/dl (9-21) Creatinine 1.30 mg/dl (0.66-1.25) Glomerular Filtration Rate Calc 52.1 Random Glucose 109 mg/dl (75-110) Calcium Level 8.7 mg/dl (8.4-10.2) Total Bilirubin 0.4 mg/dl (0.2-1.3) Aspartate Amino Transf (AST/SGOT) 32 U/L (0-35) Alanine Aminotransferase (ALT/SGPT) 35 U/L (0-56) Alkaline Phosphatase 122 U/L (0-126) B-Type Natriuretic Peptide 493 pg/ml (0-100) Total Protein 7.1 g/dl (6.3-8.2) Albumin 3.7 g/dl (3.5-5.0) Troponin I 0.099 ng/ml Chemistry Test 11/25/17 22:02 11/26/17 01:02 White Blood Count 6.2 k/uL (4.5-11.0) Red Blood Count 3.91 M/uL (4.00-5.60) Hemoglobin 10.5 g/dL (14.0-18.0) Hematocrit 32.9 % (42.0-52.0) Mean Corpuscular Volume 84.2 fL (80.0-96.0) Mean Corpuscular Hemoglobin 26.9 pg (26.0-33.0) Mean Corpuscular Hemoglobin Concent 32.0 g/dL (32.0-36.0) Red Cell Distribution Width 15.5 % (11.5-14.5) Platelet Count 309 K/uL (150-450) Mean Platelet Volume 8.0 fL (7.2-11.1) Neutrophils (%) (Auto) 56.9 % (39.4-72.5) Lymphocytes (%) (Auto) 34.1 % (17.6-49.6) Monocytes (%) (Auto) 6.4 % (4.1-12.4) Eosinophils (%) (Auto) 1.9 % (0.4-6.7) Basophils (%) (Auto) 0.7 % (0.3-1.4) Nucleated RBC Relative Count (auto) 0.0 /100WBC Neutrophils # (Auto) 3.5 K/uL (2.0-7.4) Lymphocytes # (Auto) 2.1 K/uL (1.3-3.6) Monocytes # (Auto) 0.4 K/uL (0.3-1.0) Eosinophils # (Auto) 0.1 K/uL (0.0-0.5) Basophils # (Auto) 0.0 K/uL (0.0-0.1) Nucleated RBC Absolute Count (auto) 0.00 K/uL Glomerular Filtration Rate Calc 52.1 Calcium Level 8.7 mg/dl (8.4-10.2) Total Bilirubin 0.4 mg/dl (0.2-1.3) Aspartate Amino Transf (AST/SGOT) 32 U/L (0-35) Alanine Aminotransferase (ALT/SGPT) 35 U/L (0-56) Alkaline Phosphatase 122 U/L (0-126) B-Type Natriuretic Peptide 493 pg/ml (0-100) Total Protein 7.1 g/dl (6.3-8.2) Albumin 3.7 g/dl (3.5-5.0) Troponin I 0.099 ng/ml EKG/Imaging EKG Interpretation 12 lead EKG: Rhythm: Electronic pacemaker, 80 bpm [place]: normal QRS: normal ST segments: normal, comparison to previous EKG dated 08/07/17, no significant change. Remaining stool chambered sequential pacemaker Imaging X-ray: Single view portable chest x-ray was obtained. I viewed the images my self on the PACS system. My interpretation of the images is: No infiltrate, no effusion, normal mediastinum., Comparison to previous chest x-ray 08/07/17, no significant change, there is an intact AICD and pacemaker.. The radiologist interpretation had no clinically significant variation from this interpretation. ED Course/Re-evaluation Clinical Indication for ER IV: IV Access ED Course Patient was admitted to an examination room. H&P was done. The differential diagnoses was considered. Patient with an extensive history of coronary artery disease. He had pretty significant chest discomfort at home tonight, took 2 nitroglycerin short period apart with improvement of his pain. He became diaphoretic. He was brought in by EMS and improved rapidly without any treatment. After arrival here. 1st troponin was mildly elevated at 0.019. His EKG was a pacemaker rhythm was unchanged from previous EKG. Repeat troponin at 3 hours has increased by 5 times up to 0.099 threshold for ischemia. Patient has a history of 8 stents. He recently underwent replacement of his pacemaker by Dr. Castillo 2 weeks ago. He was weaning off of his Coumadin. Tonight after being off Coumadin for one week. He started eloquent's his 1st dose. P atient has an allergy to aspirin. His symptoms have resolved spontaneously after the 2 nitroglycerin. He took at home. It's been a symptomatically here in the emergency department. 11/26/2017 1:54:27 am case discussed with Dr. Castillo kiln firer helper on-call at [facility]. He is advised admission to the hospitalist for serial troponins 11/26/2017 2:00:04 am case was discussed with Dr. Zapien hospitalist at [facility] who accepts the patient for transfer to his facility. He will be admitted as observation Decision to Disposition Date: Nov 25, 2017 Decision to Disposition Time: 22:15 Depart Departure Latest Vital Signs Vital Signs Date Time Temp Pulse Resp B/P (MAP) Pulse Ox O2 Delivery O2 Flow Rate FiO2 11/26/17 02:35 80 20 94 11/26/17 02:30 157/89 (111) 11/25/17 22:04 98.2 Room Air Impression: Primary Impression: Non-STEMI (non-ST elevated myocardial infarction) Additional Impressions: History of coronary artery disease Presence of combination internal cardiac defibrillator (ICD) and pacemaker Chronic anticoagulation Condition: Improved Disposition: XFER TO [facility] Referrals: DERIC COURTNEY MD (PCP) Problem Qualifiers BRONWYN KAUR DO Nov 25, 2017 21:58
[2017-11-25 22:20] LABS: PLATELET COUNT, AUTOMATED 309 K/uL (150-450)
[2017-11-25] MEDS ORDERED: APIX5TAB PO (22:20)
--- NOTE | 2017-11-25 22:41 | EKG ---
FACILITY: [facility] - [place] PATIENT NAME: VIBHA WALTON : [id number] MR: [id number] V: [id number] EXAM DATE: ORDERING PHYSICIAN: BRONWYN KAUR TECHNOLOGIST: JAIME Test Reason : CARDIAC Blood Pressure : / mmHG Vent. Rate : 080 BPM Atrial Rate : 074 BPM P-R Int : 000 ms QRS Dur : 168 ms QT Int : 452 ms P-R-T Axes : 000 223 -15 degrees QTc Int : 521 ms Electronic ventricular pacemaker When compared with ECG of 07-AUG-2017 10:03, Vent. rate has increased BY 20 BPM Confirmed by Yifan Faustin ([id number]) on 11/26/2017 12:02:20 AM Referred By: VALERIANO Confirmed By:Yifan Winchester
--- NOTE | 2017-11-25 23:35 | RADIOLOGY IMAGING REPORT ---
[place] [facility] [place] Tiburcio Rivas : 1930 MR: [id number] V: [id number] EXAM DATE: ORDERING PHYSICIAN: BRONWYN KAUR TECHNOLOGIST: Location: [facility] Patient: Tiburcio Rivas : 1930 Visit/Account:[id number] Date of Sevice: 11/25/2017 CHEST SINGLE AP 11/25/2017 22:07 hours. HISTORY: Chest pain. Bruising all over chest after giving a new pacemaker several days ago. COMPARISON: 08/07/2017 and studies dating to 08/07/2007. TECHNIQUE: Portable AP view of the chest. FINDINGS: Tubes/lines/hardware: ICD generator projects at the left lateral mid to upper chest, and leads termin ate in the right atrium, the right ventricle, and the coronary sinus. There are sternal closure wires . The inferior most is fractured, unchanged. There are vascular markers. There are surgical clips at the midline lower chest/upper abdomen. There are orthopedic anchors within the right humeral head. Pulmonary: Lungs are clear. Nipple shadows project at the lung bases. There is no pneumothorax or ple ural effusion. Cardiomediastinal: Cardiac and mediastinal silhouettes are within normal limits. There is mild aortic calcification. Bones/soft tissues: No acute osseous abnormality. The visible abdomen is normal. IMPRESSION: 1. No acute cardiopulmonary process. Report Dictated By: Ingrid Fernando at 11/25/2017 11:29 PM Report E-Signed By: Ingrid Fernando at 11/25/2017 11:32 PM WSN:[id number]
[2017-11-26 02:30] VITALS: BP 157/89
== END 2017-11-26 02:55 | disposition short-term general hospital (02) ==
LOC: ER 22:27
DX: I21.4 Non-ST elevation (NSTEMI) myocardial infarction (principal); I25.10 Atherosclerotic heart disease of native coronary artery without angina pectoris; Z79.01 Long term (current) use of anticoagulants; Z95.0 Presence of cardiac pacemaker
CPT/HCPCS: 71045; 82040; 82247; 82310; 82374; 82435; 82565; 82947; 83880; 84075; 84132; 84155; 84295; 84450; 84460; 84484; 84520; 85025; 93005; 99285

== ENCOUNTER → 2017-11-26 | Outpatient (CLI) | payer MEDICARE ==
[~2017-11-26] MED LIST changes: +APIX5TAB PO; +CARV12.577 PO; +CLOP75TA PO; +[UNRECOGNIZED DRUG - CODE] PO
== END ==
LOC: AMB 02:46
PROVIDERS: ATTEND Nurse Practitioner
DX: R79.89 Other specified abnormal findings of blood chemistry (principal)
CPT/HCPCS: A0425; A0426

== ENCOUNTER → 2017-12-31 | Outpatient (CLI) | payer MEDICARE | LOC: LAB 16:14 | PROVIDERS: ATTEND Internal Medicine Clinical Cardiac Electrophysiology | DX: I48.1 Persistent atrial fibrillation (principal) | CPT/HCPCS: 36415; 82040; 82247; 82310; 82374; 82435; 82565; 82947; 84075; 84132; 84155; 84295; 84443; 84450; 84460; 84520 ==

== ENCOUNTER → 2018-01-04 | Outpatient (CLI) | payer MEDICARE | LOC: RESP 02:17 | PROVIDERS: ATTEND Internal Medicine Clinical Cardiac Electrophysiology | DX: J98.4 Other disorders of lung (principal) | CPT/HCPCS: 94060; 94726; 94729 ==

== ENCOUNTER → 2018-02-11 | Outpatient (REF) | payer MEDICARE ==
[~2018-02-11] MED LIST changes: -RANI75TA5 PO; +RANI75TA51 PO
== END ==
LOC: ZZSENDIN 16:14
PROVIDERS: ATTEND Physician Assistant
DX: R31.9 Hematuria, unspecified (principal); N39.0 Urinary tract infection, site not specified
CPT/HCPCS: 87088

== ENCOUNTER → 2018-03-09 | Outpatient (CLI) | payer MEDICARE ==
[~2018-03-09] MED LIST changes: +LEVO-3 PO
[2018-03-09 10:52] LABS: PLATELET COUNT, AUTOMATED 223 K/uL (150-450)
== END ==
LOC: LAB 10:37
PROVIDERS: ATTEND Family Medicine
DX: N18.9 Chronic kidney disease, unspecified (principal); E03.9 Hypothyroidism, unspecified; D50.9 Iron deficiency anemia, unspecified
CPT/HCPCS: 36415; 82310; 82374; 82435; 82565; 82947; 84132; 84295; 84443; 84520; 85025

== ENCOUNTER → 2018-05-06 | Outpatient (CLI) | payer MEDICARE ==
[~2018-05-06] MED LIST changes: +APIX2.5T PO
[2018-05-06 09:24] LABS: PLATELET COUNT, AUTOMATED 218 K/uL (150-450)
== END ==
LOC: LAB 09:06
PROVIDERS: ATTEND Family Medicine
DX: D50.9 Iron deficiency anemia, unspecified (principal)
CPT/HCPCS: 36415; 85025

== ENCOUNTER → 2018-05-31 | Outpatient (CLI) | payer MEDICARE | LOC: LAB 09:32 | PROVIDERS: ATTEND Internal Medicine | DX: D63.1 Anemia in chronic kidney disease (principal); N18.9 Chronic kidney disease, unspecified | CPT/HCPCS: 36415; 82310; 82374; 82435; 82565; 82728; 82947; 83540; 84132; 84295; 84520; 85027 ==

== ENCOUNTER → 2018-07-25 | Outpatient (REF) | payer MEDICARE ==
[~2018-07-25] MED LIST changes: +CAR6.25 PO
== END ==
LOC: ZZSTITCHES 12:29
PROVIDERS: ATTEND Physician Assistant
DX: N39.0 Urinary tract infection, site not specified (principal)
CPT/HCPCS: 87088

== ENCOUNTER → 2018-08-08 | Outpatient (CLI) | payer MEDICARE | LOC: LAB 08:29 | PROVIDERS: ATTEND Internal Medicine | DX: D63.1 Anemia in chronic kidney disease (principal); N18.9 Chronic kidney disease, unspecified | CPT/HCPCS: 36415; 82310; 82374; 82435; 82565; 82728; 82947; 83540; 84132; 84295; 84520; 85027 ==